=== PATIENT | female | born 1970 | race Caucasian/White ===

== ENCOUNTER 2017-01-25 21:35 | Emergency (ER) | payer OTHER, MEDICAID ==
--- NOTE | 2017-01-25 22:13 | ER Document Report ---
ED General - General Chief Complaint: Nausea/Vomiting/Diarrhea Stated Complaint: NAUSEA/VOMITING Time Seen by Provider: 01/25/17 22:02 Mode of Arrival: Medic Information source: Patient - HPI Notes: Patient is a 46-year-old female presents emergency department with report that she has been significantly stressed since her best friend on 12/05/16 and has had a 32 pound weight loss related to eating less, but 5 days ago she was seen by a new psychiatric practitioner in the area and was discontinued on her Seroquel, trazodone, Wellbutrin, Celexa and was started on Geodon and Restoril and her Xanax was cut back from 3 mg 3 times a day to 2 mg nightly, and since that time she has had inability to sleep significant tremor anxiety and nausea and vomiting with minimal diarrhea. No bright red blood per rectum or hematemesis. Patient denies any chest pain or difficulty breathing. Patient does report some epigastric pain. Patient reports no significant change in her chronic back pain. She denies any fevers, but does report chills. No hallucinations. She drinks very minimally just reports once per week minimal amount. Patient has been unable to sleep at home and has been very anxious. Past Medical History - General Information source: Patient - Social History Smoking Status: Current Every Day Smoker Cigarette use (# per day): Yes - just restarted after not smoking for 3 years. Frequency of alcohol use: Rare Drug Abuse: Marijuana Lives with: Family Family History: Reviewed & Not Pertinent Review of Systems - Review of Systems Notes: REVIEW OF SYSTEMS: CONSTITUTIONAL : Denies fever. EENT: Denies eye, ear, throat, or mouth pain or symptoms. Denies nasal or sinus congestion or discharge. Denies throat, tongue, or mouth swelling or difficulty swallowing. CARDIOVASCULAR: Denies chest pain. Denies palpitations or racing or irregular heart beat. Denies ankle edema. RESPIRATORY: Denies cough, cold, or chest congestion. Denies shortness of breath, difficulty breathing, or wheezing. GASTROINTESTINAL: Denies abdominal distention. Denies blood in vomitus, stools , or per rectum. Denies black, tarry stools. Denies constipation. GENITOURINARY: Denies difficulty urinating, painful urination, burning, frequency, blood in urine, or discharge. FEMALE GENITOURINARY: Denies vaginal bleeding, heavy or abnormal periods, irregular periods. Denies vaginal discharge or odor. MUSCULOSKELETAL: Denies neck pain or stiffness. Denies joint pain or swelling. Reports mild chronic back pain. SKIN: Denies rash, lesions or sores. HEMATOLOGIC : Denies easy bruising or bleeding. LYMPHATIC: Denies swollen, enlarged glands. NEUROLOGICAL: Denies confusion or altered mental status. Denies passing out or loss of consciousness. Denies headache. Denies weakness or paralysis or loss of use of either side. Denies problems with gait or speech. Denies sensory loss, numbness, or tingling. Denies seizures. PSYCHIATRIC: Denies anxiety or stress. Denies depression, suicidal ideation, or homicidal ideation. ALL OTHER SYSTEMS REVIEWED AND NEGATIVE. Dictation was performed using [employer] voice recognition software Physical Exam - Vital signs Vitals: Temp Pulse Resp BP Pulse Ox 98.5 F 91 20 130/71 H 96 01/25/17 21:38 01/25/17 21:38 01/25/17 21:38 01/25/17 21:38 01/25/17 21:38 - Notes Notes: PHYSICAL EXAMINATION: GENERAL: Well-appearing, well-nourished and in obvious discomfort with nausea and vomiting and some muscle twitching and anxiety. Very anxious. HEAD: Atraumatic, normocephalic. EYES: Pupils equal round and reactive to light, extraocular movements intact, conjunctiva are normal. ENT: Nares patent, oropharynx clear without exudates. Dry mucous membranes. NECK: Normal range of motion, supple without lymphadenopathy LUNGS: Breath sounds clear to auscultation bilaterally and equal. No wheezes rales or rhonchi. HEART: Regular rate and rhythm without murmurs ABDOMEN: Soft, No guarding, no rebound. No masses appreciated. Tender through the mid epigastric region. Negative Patel's. Female : deferred Musculoskeletal: Normal range of motion, no pitting or edema. No cyanosis. NEUROLOGICAL: Cranial nerves grossly intact. Normal speech, normal gait. Normal sensory, motor exams PSYCH: Very anxious SKIN: Warm, Dry, normal turgor, no rashes or lesions noted. Course - Re-evaluation Re-evalutation: 01/25/17 22:19 Patient was given Zofran.And normal saline 500 cc while in route by EMS. On arrival, patient was given Valium 10 mg IV and IV Protonix. Patient was given additional IV fluids with replacement potassium and was given additional Ativan and was given Carafate and Pepcid with further improvement in her nausea. Repeat abdominal exam showed no tenderness. Patient tolerated p.o. fluids and crackers and felt stable for discharge. Urine specimen showed evidence for a urinary tract infection. A urine culture was taken. Patient was given IV Rocephin and will be placed upon Cipro. Discussion was undertaken with the patient about the need to have a slow controlled to wean down of her Xanax to prevent seizure activity and benzodiazepine withdrawal. She understood this. 01/26/17 04:42 - Vital Signs Vital signs: Temp Pulse Resp BP Pulse Ox 98.5 F 91 20 130/71 H 96 01/25/17 21:38 01/25/17 21:38 01/25/17 21:38 01/25/17 21:38 01/25/17 21:38 - Laboratory Result Diagrams: 01/25/17 22:50 01/25/17 22:50 Laboratory results interpreted by me: 01/25/17 01/25/17 01/26/17 22:50 22:50 01:30 Hgb 11.7 L Hct 34.8 L RDW 14.8 H Plt Count 147 L Potassium 3.3 L Chloride 112 H Carbon Dioxide 20 L Calcium 8.2 L Total Protein 5.5 L Albumin 3.3 L Urine Protein 30 H Urine Ketones TRACE H Urine Urobilinogen 2.0 H Ur Leukocyte Esterase LARGE H - EKG Interpretation by [place] EKG shows normal: Sinus rhythm Additional EKG results interpreted by me: 01/26/17 00:26 EKG as interpreted by ok showed normal sinus rhythm heart rate of 77. There is no gross evidence for acute NE or ischemia identified. There is no old EKG available for comparison. Discharge - Discharge Clinical Impression: Benzodiazepine withdrawal with complication, Dehydration Vomiting Qualifiers: Vomiting type: unspecified Vomiting Intractability: non-intractable Nausea presence: with nausea Qualified Code(s): R11.2 - Nausea with vomiting, unspecified Urinary tract infection Qualifiers: Urinary tract infection type: site unspecified Hematuria presence: without hematuria Qualified Code(s): N39.0 - Urinary tract infection, site not specified Condition: Stable Disposition: HOME, SELF-CARE Instructions: Urinary Tract Infection ([facility]), Intravenous (IV) Fluids ([facility]), Vomiting ([facility]) Additional Instructions: If you continue to get muscle twitching while taking the Geodon, then take Benadryl as directed. Your regular practitioner may need to start you on Cogentin for the muscle twitching and possible dystonic reaction. Recommend a slow weaning down from the Xanax 3 mg 3 times a day. The next step should be Xanax 2 mg 3 times a day for at least 2 weeks prior to cutting back further. Cutting back on Xanax too quickly could cause seizures. Drink plenty of fluids. Return to the ED in case of fever, uncontrolled vomiting. Prescriptions: Ondansetron [Zofran Odt 4 mg Tablet] 1 tab PO Q8HP PRN #15 tab.rapdis PRN Reason: For Nausea/Vomiting Alprazolam [Xanax] 2 mg PO TID #25 tablet Ciprofloxacin HCl [Cipro 500 mg Tablet] 500 mg PO BID #14 tablet
[2017-01-25] MEDS ORDERED: PANTOPRAZOLE SODIUM 40 MG VIAL IV ONE (22:16)
[2017-01-25] MEDS ORDERED: DIAZEPAM INJ 10 MG/2 ML DISP.SYRIN IV ONE (22:16)
[2017-01-25 23:06] LABS: ABSOLUTE BASOPHILS # (AUTO) 0.1 10^3/uL (0.0-0.2); ABSOLUTE EOSINOPHILS # (AUTO) 0.1 10^3/uL (0.0-0.6); ABSOLUTE LYMPHOCYTES (AUTO) 1.6 10^3/uL (0.5-4.7); ABSOLUTE MONOCYTES (AUTO) 0.5 10^3/uL (0.1-1.4); ABSOLUTE NEUT (AUTO) 6.4 10^3/uL (1.7-8.2); BASOPHILS % (AUTO) 0.6 % (0-2); EOSINOPHILS % (AUTO) 1.7 % (0-6); HEMATOCRIT 34.8 % (36.0-47.0); HEMOGLOBIN 11.7 g/dL (12.0-15.5); HGB HCT DIFFERENCE 0.3; MEAN CORPUSCULAR HEMOGLOBIN 28.3 pg (27.0-33.4); MEAN CORPUSCULAR HGB CONC 33.8 g/dL (32.0-36.0); MEAN CORPUSCULAR VOLUME 84 fl (80-97); MONOCYTES % (AUTO) 6.3 % (3-13); RED BLOOD COUNT 4.15 10^6/uL (3.72-5.28); RED CELL DISTRIBUTION WIDTH 14.8 % (11.5-14.0); SEGMENTED NEUTROPHILS % (AUTO) 73.4 % (42-78); WHITE BLOOD COUNT 8.7 10^3/uL (4.0-10.5)
[2017-01-25 23:18] LABS: ALANINE AMINOTRANSFERASE 33 U/L (9-52); ALBUMIN 3.3 g/dL (3.5-5.0); ALKALINE PHOSPHATASE 61 U/L (38-126); ANION GAP 10 (5-19); ASPARTATE AMINO TRANSFERASE 25 U/L (14-36); BILIRUBIN,DIRECT 0.3 mg/dL (0.0-0.4); BILIRUBIN,TOTAL 0.5 mg/dL (0.2-1.3); BLOOD UREA NITROGEN 10 mg/dL (7-20); CALCIUM 8.2 mg/dL (8.4-10.2); CARBON DIOXIDE 20 mmol/L (22-30); CHLORIDE 112 mmol/L (98-107); CREATININE RESULT 0.54 mg/dL (0.52-1.25); GLUCOSE 83 mg/dL (75-110); MAGNESIUM 1.7 mg/dL (1.6-2.3); POTASSIUM 3.3 mmol/L (3.6-5.0); SODIUM 141.9 mmol/L (137-145); TOTAL PROTEIN 5.5 g/dL (6.3-8.2)
[2017-01-25 23:22] LABS: ALCOHOL < 10 mg/dL (NONE DETECTED)
[2017-01-25] MEDS ORDERED: POTASSI CL 20 MEQ/NS 1L 1,000 ML IV ONE (23:24)
[2017-01-25] MEDS ORDERED: LORAZEPAM INJ 2 MG/1 ML VIAL IV ONE (23:24)
[2017-01-25] MEDS ORDERED: SUCRALFATE 1 GM TABLET PO ONE (23:28)
[2017-01-25] MEDS ORDERED: FAMOTIDINE 20 MG TABLET PO ONE (23:29)
[2017-01-26] MEDS ORDERED: DIPHENHYDRAMINE HCL 50 MG/ML VIAL IV ONE (01:07)
[2017-01-26 02:04] LABS: URINE BARBITURATES SCREEN NEGATIVE; URINE METHADONE SCREEN NEGATIVE; URINE OPIATES LOW NEGATIVE; URINE PHENCYCLIDINE SCREEN NEGATIVE
[2017-01-26 02:09] LABS: APPEARANCE,URINE CLOUDY; BILIRUBIN,URINE NEGATIVE (NEGATIVE); GLUCOSE, URINE NEGATIVE (NEGATIVE); KETONES,URINE TRACE mg/dL (NEGATIVE); LEUKOCYTE ESTERASE,URINE LARGE (NEGATIVE); NITRITE,URINE NEGATIVE (NEGATIVE); PROTEIN,URINE 30 mg/dL (NEGATIVE); URINE SPECIFIC GRAVITY 1.029
[2017-01-26] MEDS ORDERED: CEFTRIAXONE INJ 1000 MG VIAL IV ONE (03:32)
[2017-01-26] MEDS ORDERED: ALPRAZOLAM 0.5 MG TABLET PO ONE (04:48)
[2017-01-26] MEDS ORDERED: ONDANSETRON ODT 4 MG TAB (6 TAB/DSPK) PO PRN (04:48)
[2017-01-26 05:08] VITALS: BP 129/74
--- NOTE | 2017-01-26 07:52 | EKG REPORT ---
SEVERITY:- ABNORMAL ECG - SINUS RHYTHM LEFT ANTERIOR FASCICULAR BLOCK : Confirmed by: Amos Warren MD 26-Jan-2017 07:51:45
== END 2017-01-26 05:08 | disposition home or self-care (01) ==
LOC: ER 21:35
DX: F19.939 Other psychoactive substance use, unspecified with withdrawal, unspecified (principal); E86.0 Dehydration; N39.0 Urinary tract infection, site not specified; R11.2 Nausea with vomiting, unspecified; R19.7 Diarrhea, unspecified; F17.210 Nicotine dependence, cigarettes, uncomplicated; Z79.899 Other long term (current) drug therapy
CPT/HCPCS: 93005; 99284; 96375; 96365; 96366; 96367; 36415; 87086; 80307 ×2; 83690; 83735; 85025; 87088; 80053; 81001; 87186; 93010; J3490 ×3; J3360; J1200; J2060; S0164; J0696; J3480